=== PATIENT | male | born 1975 | race Caucasian/White ===

== ENCOUNTER → 2017-04-12 | Day surgery (SDC) | payer OTHER ==
[2017-04-12 09:28] LABS: HCT 48.3 % (42.0-52.0); HGB 16.7 g/dl (13.2-18.0); MCHC 34.6 g/dL (32.0-36.0); MCV 86.9 fL (78.0-100.0); MPV 10.4 fL (6.0-9.5); RBC 5.56 M/uL (4.70-6.00); RDW 13.3 % (11.5-14.0); WBC 8.6 K/uL (4.0-10.5)
[2017-04-12 09:48] LABS: CREATININE 0.9 mg/dL (0.7-1.2); GLOBULIN (CALCULATION) 2.6 g/dL (2.2-4.2); POTASSIUM 4.5 mmol/L (3.5-5.1); TOTAL PROTEIN 7.6 g/dL (6.4-8.3)
== END | disposition home or self-care (01) ==
LOC: FAS 09:05
PROVIDERS: Surgery
DX: K63.5 Polyp of colon (principal); K64.8 Other hemorrhoids; I10 Essential (primary) hypertension; E03.9 Hypothyroidism, unspecified; I47.1 Supraventricular tachycardia; Z88.5 Allergy status to narcotic agent; Z79.82 Long term (current) use of aspirin; Z79.899 Other long term (current) drug therapy; Z98.890 Other specified postprocedural states
CPT/HCPCS: 36415; 80053; 88305; J2704